=== PATIENT | female | born 2000 | race Caucasian/White ===

== ENCOUNTER 2020-04-15 22:01 | Emergency (ER) | payer SELFPAY ==
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
[2020-04-15 22:13] VITALS: BP 145/60; PULSE 109; RESP 16; TEMP 37.1; O2SAT 99
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
[2020-04-15] MEDS: TETANUS,DIPHTHERIA,AC PERTUSSIS ADULT (0.5 ML) BOOSTRIX IM (23:16)
[2020-04-16] MEDS: AMOXICILLIN/CLAVULANATE K 875-125 MG TAB 1 TABLET PO (00:01)
== END 2020-04-16 00:01 | disposition home or self-care (01) ==
LOC: ANHED 23:43
PROVIDERS: Emergency Provider Emergency Medicine
DX: S70.352A Superficial foreign body, left thigh, initial encounter (principal); W34.010A Accidental discharge of airgun, initial encounter
CPT/HCPCS: 73552; 90471; 90715; 99283; A9270

== ENCOUNTER 2020-09-24 22:47 | Emergency (ER) | payer OTHER, SELFPAY ==
--- NOTE | ~2020-09-24 | XR_ITS ---
XR humerus LT, XR shoulder LT min 2V 09/24/2020 23:28 Indication: Left shoulder and arm pain after recent fall Procedure: 4 views left shoulder and 2 views left humerus Comparison: No prior studies for comparison. Findings: There is a nondisplaced fracture of the greater tuberosity. There is anatomic alignment. No other fractures identified. No focal soft tissue abnormality. Impression: 1: Nondisplaced fracture of the left greater tuberosity. Reviewed, dictated and finalized at location A. Impression: 1: Nondisplaced fracture of the left greater tuberosity. Impression: 1: Nondisplaced fracture of the left greater tuberosity.
[2020-09-24 22:49] VITALS: BP 152/91; PULSE 103; RESP 16; TEMP 36.1; O2SAT 100
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
[2020-09-24] MEDS: ONDANSETRON HCL ODT 4 MG TABLET PO (23:56)
[2020-09-25] MEDS: oxyCODONE/ACETAMINOPHEN (*CRX) 5-325 MG TABLET 1 TABLET PO (00:02)
[2020-09-25 00:35] VITALS: BP 137/62; PULSE 93; RESP 20; O2SAT 98
== END 2020-09-25 00:35 | disposition home or self-care (01) ==
PROVIDERS: Emergency Provider Emergency Medicine
DX: S42.255A Nondisplaced fracture of greater tuberosity of left humerus, initial encounter for closed fracture (principal); F17.210 Nicotine dependence, cigarettes, uncomplicated; W10.9XXA Fall (on) (from) unspecified stairs and steps, initial encounter
CPT/HCPCS: 73030; 73060; 99284; A4565; A9270